=== PATIENT | male | born 1970 | race Caucasian/White ===

== ENCOUNTER → 2018-06-02 | Outpatient (CLI) | payer BC ==
--- NOTE | 2018-06-02 16:44 | XR ---
EXAMINATION TYPE: XR cervical spine comp DATE OF EXAM: 06/02/2018 COMPARISON: NONE HISTORY: 48 year-old male chronic neck pain, degenerative disc disease, finger tingling TECHNIQUE: 6 views FINDINGS: No significant bony spondylotic neuroforaminal narrowing on either side. No predental space widening or prevertebral soft tissue swelling. Alignment is maintained. Normal odo ntoid view. Disc interspaces relatively maintained. Mild scattered degenerative facet spurring. IMPRESSION: 1. Scattered mild degenerative facet spurring. 2. No significant bony spondylotic neural foraminal narrowing seen on either side. 3. No malalignment or prevertebral soft tissue swelling.
== END | disposition home or self-care (01) ==
LOC: RADXRMAIN 15:46
PROVIDERS: ATTEND Family Medicine
DX: M50.30 Other cervical disc degeneration, unspecified cervical region (principal)
CPT/HCPCS: 72050

== ENCOUNTER → 2018-07-08 | Outpatient (CLI) | payer BC ==
--- NOTE | 2018-07-08 09:08 | P.ARTDOP ---
Arterial Doppler LOWER EXTREMITY ARTERIAL DOPPLER: DATE OF SERVICE: 07/08/2018 Reason for study: Claudication. Doppler waveforms: Multiphasic at the right femoral and throughout on the left. Atypical throughout on the right and essentially flat line at the digital level. Pulse volume recording: []. Pressure gradients: Significant great gradient across the thigh.. Ankle-brachial indices: Greater than 1 on the left. 0.54 on the right.. Toe pressures: 15 on the right, 116 on the left Impression: Normal left side. Moderate to severe right femoral popliteal occlusive disease. Poor toe pressures suggest inadequate collateralization. Recommend vascular surgical consultation..
== END | disposition home or self-care (01) ==
LOC: RADUSWWP 07:35
PROVIDERS: ATTEND Family Medicine
DX: I70.201 Unspecified atherosclerosis of native arteries of extremities, right leg (principal)
CPT/HCPCS: 93923

== ENCOUNTER → 2019-04-09 | Outpatient (CLI) | payer BC ==
--- NOTE | 2019-04-10 05:03 | CT ---
EXAMINATION TYPE: CT lumbar spine wo con DATE OF EXAM: 04/09/2019 COMPARISON: None HISTORY: 49-year-old male Lumbar neuritis. PT c/o numbness in RT foot, shock like sensation in leg to o for several months TECHNIQUE: Contiguous axial scanning of the lumbar spine without IV contrast. Coronal and sagittal re constructions performed. CT DLP: 1414.20 mGycm Automated exposure control for dose reduction was used. FINDINGS: Vertebral body heights are preserved and alignment is maintained. Anterior endplate spondylosis visua lized lower thoracic spine with associated mild degenerative disc disease. Bulging disc L5-S1. No large focal disc herniation or significant spinal canal stenosis seen by CT. Changes result in mild bilateral neuroforaminal stenosis at L5-S1. No significant neuroforaminal stenosis seen at the remaining levels of the lumbar spine. Some prominent scattered left periaortic lymph nodes noted measuring up to 7 mm, probably reactive/po st inflammatory. No prevertebral or paravertebral soft tissue abnormality. Mild to moderate degenerative change left SI joint. IMPRESSION: 1. NO VERTEBRAL COMPRESSION COLLAPSE OR MALALIGNMENT. 2. MILD DEGENERATIVE DISC DISEASE L5-S1 WITH MILD POSTERIOR DISC PROTRUSION. NO LARGE FOCAL DISC SHANTELL IATION OR SIGNIFICANT SPINAL CANAL STENOSIS SEEN. 3. CHANGES RESULT IN MILD BILATERAL NEUROFORAMINAL STENOSIS AT L5-S1. 4. MILD TO MODERATE LEFT SI JOINT OA.
== END | disposition home or self-care (01) ==
LOC: RADCTMAIN 16:32
PROVIDERS: ATTEND Family Medicine
DX: M48.07 Spinal stenosis, lumbosacral region (principal); M51.17 Intervertebral disc disorders with radiculopathy, lumbosacral region; M47.28 Other spondylosis with radiculopathy, sacral and sacrococcygeal region
CPT/HCPCS: 72131